=== PATIENT | male | born 1950 | race Hispanic/Latino ===

== ENCOUNTER 2017-09-15 17:33 | Emergency (ER) | payer MEDICARE ==
[~2017-09-15] VITALS: Ht 180.3 cm; Wt 102.0 kg
[2017-09-15] MEDS ORDERED: GLIPIZIDE ER5 M1 PO (17:59)
[2017-09-15] MEDS ORDERED: METFORMIN500 MG PO (17:59)
[2017-09-15] MEDS ORDERED: LEVOTHYROXIN50 MCG PO (18:00)
[2017-09-15] MEDS ORDERED: KEFLEX500 M1 PO (19:44)
[2017-09-15] MEDS ORDERED: ULTRAM50 M1 PO (19:44)
[2017-09-15 20:07] VITALS: BP 131/67
== END 2017-09-15 20:04 | disposition home or self-care (01) ==
LOC: ED 17:33
DX: I87.2 Venous insufficiency (chronic) (peripheral) (principal); L97.829 Non-pressure chronic ulcer of other part of left lower leg with unspecified severity; E11.9 Type 2 diabetes mellitus without complications; E03.9 Hypothyroidism, unspecified; N40.0 Benign prostatic hyperplasia without lower urinary tract symptoms